=== PATIENT | male | born 1970 | race Hispanic/Latino ===

== ENCOUNTER 2016-11-28 07:05 | Outpatient (CLI) | payer BC ==
[2016-11-28 09:30] LABS: ISTAT Base Excess -2; ISTAT DEVICE 0; ISTAT HCO3 22.8; ISTAT PCO2 34.3 (35-45); ISTAT PO2 89 (80-105); ISTAT SO2 97; ISTAT TCO2 24
== END 2016-11-28 07:06 | disposition home or self-care (01) ==
LOC: ECHO 07:05
PROVIDERS: ATTEND Internal Medicine
DX: R06.02 Shortness of breath (principal); R60.9 Edema, unspecified; D58.2 Other hemoglobinopathies
CPT/HCPCS: 36600; 82803; 93306

== ENCOUNTER 2017-01-01 07:45 | Outpatient (CLI) | payer BC ==
[2017-01-01] MEDS ORDERED: LEXISCAN IV ONE ×2 (09:37→09:42)
--- NOTE | 2017-01-02 03:57 | Treadmill Report ---
THALLIUM STRESS TEST LEFT VENTRICLE: Left ventricular chamber size is within normal. Perfusion study demonstrates a small to moderate sized, predominately fixed inferior defect. On the resting study, there is a minimal reversibility. Gated analysis demonstrates normal left ventricular systolic function, ejection fraction 57%. CONCLUSION: Fixed basal inferior defect likely due to diaphragmatic attenuation artifact. Cannot exclude a small prior basal inferior infarct. Clinical correlation is recommended. [facility]# [id number] CA/NTS
== END 2017-01-01 07:46 | disposition home or self-care (01) ==
LOC: CARD 07:45
PROVIDERS: ATTEND Internal Medicine Cardiovascular Disease
DX: I63.9 Cerebral infarction, unspecified (principal); R94.31 Abnormal electrocardiogram [ECG] [EKG]
CPT/HCPCS: 78452; 93017; A9502; J2785

== ENCOUNTER 2017-02-04 06:10 | Outpatient (CLI) | payer BC ==
[2017-02-04] MEDS ORDERED: NACL ONE (06:45)
--- NOTE | 2017-02-04 09:33 | Cat Scan Report ---
CT abdomen and pelvis with contrast: Right lower quadrant pain. During IV contrast administration transverse images are obtained from the low chest to the ischium with coronal and sagittal 2-D reformatted images. The visualized lungs are clear. The patient had a cholecystectomy but the abdominal structures are not otherwise remarkable. The retroperitoneal organs are unremarkable including the kidneys. No evidence renal calculus identified although small calculus could be obscured by the presence of IV contrast. The partially opacified urinary bladder is normal. The partially opacified bowel and mesentery appear normal. The appendix is visualized. No inflammatory changes identified. No abnormal fluid collections. No adenopathy. The abdominal aorta is normal in size and contour. No significant bone changes. Impression: No pathology identified.
== END 2017-02-04 06:11 | disposition home or self-care (01) ==
LOC: CT 06:10
PROVIDERS: ATTEND Internal Medicine
DX: R10.31 Right lower quadrant pain (principal); Z90.49 Acquired absence of other specified parts of digestive tract; Z87.442 Personal history of urinary calculi
CPT/HCPCS: 74177; Q9967

== ENCOUNTER 2020-01-21 07:44 | Day surgery (SDC) | payer BC, OTHER ==
[~2020-01-21 07:44] MED LIST: BUPIVACAINE-EPINEPHRINE/PF 0.25%-1:200,000 (30 ML) VIAL INFILTRATI ONE; ceFAZolin/Water 2 GM/20 ML 2 GM/20 ML SYRINGE IV NR
[2020-01-21] MEDS ORDERED: ePHEDrine SULFATE 50 MG/1 ML INJ ONE (07:51)
[2020-01-21] MEDS ORDERED: NEOSTIGMINE 10MG/10 ML INJ MDV ONE (07:54)
[2020-01-21] MEDS ORDERED: ONDANSETRON 4 MG/2 ML INJ IV PRN (07:54)
[2020-01-21] MEDS ORDERED: fentaNYL 100 MCG/2 ML INJ IV PRN (07:54)
[2020-01-21] MEDS ORDERED: fentaNYL 100 MCG/2 ML INJ IV ONE (07:54)
[2020-01-21] MEDS ORDERED: dexAMETHasone 20 MG/5 ML VIAL ONE (07:54)
[2020-01-21] MEDS ORDERED: SUCCINYLCHOLINE CHLORIDE 200 MG/10 ML INJ MDV ONE (07:54)
[2020-01-21] MEDS ORDERED: LIDOCAINE MPF (2%) 20 MG/1 ML VIAL 5 ML ONE (07:54)
[2020-01-21] MEDS ORDERED: ROCURONIUM 50 MG/5 ML INJ IV ONE (07:54)
[2020-01-21] MEDS ORDERED: propofoL 200 MG/20 ML VIAL IV ONE (07:54)
[2020-01-21] MEDS ORDERED: GLYCOPYRROLATE 0.4 MG/2 ML INJ ONE (07:54)
[2020-01-21] MEDS ORDERED: fentaNYL 100 MCG/2 ML INJ ONE (07:54)
[2020-01-21] MEDS ORDERED: ONDANSETRON 4 MG/2 ML INJ ONE (07:54)
[2020-01-21] MEDS ORDERED: carvediloL 3.125 MG TAB PO ONE (07:54)
[2020-01-21] MEDS ORDERED: PHENYLEPHRINE/NS 1,000 MCG/10 ML SYRINGE (OR USE) IV ONE (07:54)
[2020-01-21] MEDS ORDERED: ACETAMINOPHEN 500 MG TAB PO NR (07:55)
[2020-01-21] MEDS ORDERED: MAGNESIUM OXIDE 400 MG TAB PO NR (07:55)
[2020-01-21 07:56] LABS: BUN/Creatinine Ratio 11; Blood Urea Nitrogen 13 mg/dL (9-20); Calcium 9.1 mg/dL (8.4-10.2); Hemolysis Index 36
--- NOTE | 2020-01-21 07:56 | Anesthesia Day of Surgery ---
Anesthesia Day of Surgery - Day of Surgery Patient Examined: Yes Patient H&P Reviewed: Yes Patient is NPO: Yes
[2020-01-21] MEDS ORDERED: LACTATED RINGERS 1,000 ML ONE (07:57)
[2020-01-21] MEDS ORDERED: MIDAZOLAM 2 MG/2 ML INJ IV NR (08:00)
[2020-01-21] MEDS ORDERED: CELECOXIB 200 MG CAP PO NR (08:00)
[2020-01-21] MEDS ORDERED: LACTATED RINGERS 1,000 ML IV SCH (08:00)
--- NOTE | 2020-01-21 08:00 | Anesthesia Consultation ---
Anesthesia Consult and Med Hx Date of service: 01/21/20 - Airway Anesthetic Teeth Evaluation: Crowns ROM Head & Neck: Inadequate (Pt states he has cervical disc issues. Decrease right turning) Mental/Hyoid Distance: Adequate Mallampati Class: Class I Intubation Access Assessment: Good - Pre-Operative Health Status ASA Pre-Surgery Classification: ASA3 Proposed Anesthetic Plan: General Nerve Block: IS - Pulmonary Hx Smoking: Yes (SNUFF DAILY) SOB: No (+2FS) Hx Sleep Apnea: Yes (DX SLEEP APNEA WITH CPAP USE.) - Cardiovascular System Hx Hypertension: Yes (X 4 YRS. Cath [id number]) Hx Coronary Artery Disease: Yes Hx Heart Attack/AMI: Yes (MILD NV 2018 PER HX , PT DENIES. NO SYMPTOMS) Hx Peripheral Vascular Disease: Yes - Central Nervous System Hx Back Pain: Yes (NECK PAIN) Hx Psychiatric Problems: No - Gastrointestinal Hx Ulcer: Yes - Endocrine Hx Non-Insulin Dependent Diabetes: Yes (PRE) - Other Systems Hx Cancer: No Hx Obesity: Yes - Additional Comments Anesthesia Medical History Comments: Blind OD. Neuropathy feet
[2020-01-21] MEDS ORDERED: BUPIVACAINE-EPINEPHRINE/PF 0.5%-1:200,000 (30 ML) VIAL INFILTRATI ONE (08:04)
[2020-01-21] MEDS ORDERED: EPINEPHrine 30 MG/30 ML INJ IV ONE (08:07)
[2020-01-21] MEDS ORDERED: BUPIVACAINE-EPINEPHRINE/PF 0.25%-1:200,000 (30 ML) VIAL INFILTRATI ONE ×2 (08:08→10:55)
[2020-01-21] MEDS ORDERED: SODIUM CHLORIDE 0.9% IRRIG SOLN 3000 ML IR ONE (09:51)
--- NOTE | 2020-01-21 11:46 | Post Anesthesia Evaluation ---
- Post Anesthesia Evaluation Patient Participated: Yes Airway Patent: Yes Stable Respiratory Function: Yes Nausea/Vomiting: No Temp > 96.8F: Yes Pain Manageable: Yes Adequeate Hydration: Yes Anesthesia Complications: No Block Receding Appropriately: Not Applicable Patient on Ventilator: No
[2020-01-21 12:07] VITALS: BP 128/49
--- NOTE | 2020-01-21 12:56 | Operative Report ---
PREOPERATIVE DIAGNOSES: Left shoulder with partial rotator cuff tear and impingement bursitis. POSTOPERATIVE DIAGNOSES: 1. Left shoulder with marked impingement and bursitis. 2. Superior labrum anterior to posterior/labral tear -- type 1. 3. Mild rotator cuff attenuation. PROCEDURES PERFORMED: 1. Left shoulder arthroscopy with arthroscopic subacromial bursectomy and decompression -- complex -- morbid obesity. 2. Arthroscopic debridement, labral and SLAP tear. SURGEON: Zacarias Busby MD VICE PRESIDENT OF NURSING: Charles Garcia CSA. ANESTHESIA: General. ESTIMATED BLOOD LOSS: Minimal. COMPLICATIONS: None. DESCRIPTION OF PROCEDURE: The patient underwent successful induction of anesthesia and a block. He was carefully positioned in the beach chair position, prepped and draped in usual fashion. He was morbidly obese. This was a complex procedure. Antibiotics were preadministered. Arthroscopy was carried out with standard posterior portal and entry made through triangular space under direct vision. Systematic exam of the joint was carried out. He was noted to have an anterior labral tearing and superior labral tearing consistent with a type 1 SLAP tear. These were debrided. The biceps itself was well preserved. No evidence of any hyperemia or any significant tearing. There was no evidence of a type 2 SLAP. A thorough evaluation was carried out of the rotator cuff including the subscapularis, supra and infraspinatus, teres minor, which were intact on the articular surface. The articular cartilage was intact. A thorough evaluation was carried out of both portals. At this point, the arthroscope was placed in the subacromial space through posterior portal. Noted to have a marked subacromial bursitis, a type 2-3 acromion. Through straight lateral portal, decompression was affected. The outer surface cuff was meticulously assessed after debridement of the bursal tissue. It was completely intact. Thorough evaluation was carried out utilizing both portals. The area that was suspected on the MRI was even tagged with a spinal needle, visualized intra-articular and extraarticular through this and no evidence of tearing noted. He had full range of motion on the table. The arthroscopic instruments were removed. Ports were closed with nylon sutures. A sterile dressing was applied. He was taken to recovery in satisfactory condition having tolerated the procedure well. JOB# [id number] RDP/NTS
== END 2020-01-21 12:55 | disposition home or self-care (01) ==
LOC: OR 07:44
PROVIDERS: ATTEND Orthopaedic Surgery
DX: M75.102 Unspecified rotator cuff tear or rupture of left shoulder, not specified as traumatic (principal); Z11.59 Encounter for screening for other viral diseases; M75.52 Bursitis of left shoulder; E11.51 Type 2 diabetes mellitus with diabetic peripheral angiopathy without gangrene; G62.9 Polyneuropathy, unspecified; I25.10 Atherosclerotic heart disease of native coronary artery without angina pectoris; I42.9 Cardiomyopathy, unspecified; E78.00 Pure hypercholesterolemia, unspecified; I10 Essential (primary) hypertension; G47.30 Sleep apnea, unspecified; K21.9 Gastro-esophageal reflux disease without esophagitis; E66.9 Obesity, unspecified; M19.90 Unspecified osteoarthritis, unspecified site; E11.42 Type 2 diabetes mellitus with diabetic polyneuropathy; Z68.42 Body mass index [BMI] 45.0-49.9, adult; Z79.84 Long term (current) use of oral hypoglycemic drugs; Z98.890 Other specified postprocedural states; Z79.82 Long term (current) use of aspirin; Z79.899 Other long term (current) drug therapy; Z90.49 Acquired absence of other specified parts of digestive tract; Z87.442 Personal history of urinary calculi; Z82.49 Family history of ischemic heart disease and other diseases of the circulatory system; Z88.8 Allergy status to other drugs, medicaments and biological substances
CPT/HCPCS: 29822; 29826; 36415; 80048; 82962; A4217; J0171; J0330; J0690; J1100; J2250; J2370; J2405; J2704; J2710; J3010; J7120; U0003